=== PATIENT | female | born 1970 | race Caucasian/White ===

== ENCOUNTER 2018-05-29 18:26 | Emergency (ER) | payer SELFPAY ==
[2018-05-29] MEDS ORDERED: Labetalol 25mg/5ml Syringe IVP STA ×2 (19:33→21:23)
--- NOTE | 2018-05-29 19:34 | C.PDOC ---
History Of Present Illness 48 year old female with no significant PMHx presents to the ED c/o skin rash for the past month. Patient denies fever, chills, headache, visual changes, slurred speech, CP, SOB, palpitations, weakness, numbness. Chief Complaint (Nursing): Abnormal Skin Integrity History Per: Patient History/Exam Limitations: no limitations Onset/Duration Of Symptoms: Days Current Symptoms Are (Timing): Still Present Quality Of Symptoms: Itching Recent travel outside of the [place]: No Additional History Per: Patient Past Medical History Reviewed: Historical Data, Nursing Documentation, Vital Signs Vital Signs: Last Vital Signs Temp 97.9 F 05/29/18 18:52 Pulse 112 H 05/29/18 18:52 Resp 20 05/29/18 18:52 BP 230/146 H 05/29/18 18:52 Pulse Ox 97 05/29/18 18:52 - Medical History PMH: No Chronic Diseases Surgical History: No Surg Hx Family History: States: Unknown Family Hx - Social History Hx Alcohol Use: No Hx Substance Use: No Review Of Systems Constitutional: Negative for: Fever, Chills Cardiovascular: Negative for: Chest Pain, Palpitations Respiratory: Negative for: Shortness of Breath Gastrointestinal: Negative for: Nausea, Vomiting, Abdominal Pain Musculoskeletal: Negative for: Neck Pain Skin: Positive for: Rash Neurological: Negative for: Weakness, Numbness, Headache, Dizziness Physical Exam - Physical Exam Appears: Non-toxic, No Acute Distress, Other (Obese) Skin: Warm, Dry, Rash (psoriatic patches, generalized on extremities and trunk area) Head: Atraumatic, Normacephalic Eye(s): bilateral: Normal Inspection, PERRL, EOMI Oral Mucosa: Moist Neck: Normal ROM, Supple Chest: Symmetrical Cardiovascular: Rhythm Regular (tachycardic) Respiratory: No Rales, No Rhonchi, No Wheezing Gastrointestinal/Abdominal: Soft, No Tenderness, No Guarding, No Rebound Extremity: Normal ROM, No Tenderness, No Swelling Neurological/Psych: Oriented x3, Normal Speech, Normal Cognition Gait: Steady ED Course And Treatment - Laboratory Results Result Diagrams: 05/29/18 19:39 05/29/18 19:39 ECG: Interpreted By Me, Viewed By Me ECG Rhythm: Sinus Tachycardia, Nonspecific Changes ECG Interpretation: No Acute Changes, Abnormal Interpretation Of ECG: Sinus tachycardia, LVH, abnormal tracings. Rate From EC O2 Sat by Pulse Oximetry: 97 (On RA) Pulse Ox Interpretation: Normal Medical Decision Making Medical Decision Making: Plan: * EKG * Labs * Trandate 20 mg IVP * UA While in the ED patient's blood pressure was elevated, patient denies CP, SOB, palpitations, headache, visual changes, weakness. Disposition Counseled Patient/Family Regarding: Studies Performed, Diagnosis - Disposition Referrals: [facility] [Outside] Disposition: HOME/ ROUTINE Disposition Time: 23:30 Condition: STABLE Prescriptions: Enalapril Maleate [Vasotec] 5 mg PO DAILY #14 tab Fluocinonide 0.05% Cream [Lidex 0.05% Cream] 15 gm EXT BID #2 tube hydroCHLOROthiazide [Hydrodiuril] 25 mg PO DAILY #14 tab Potassium Chloride 10 meq PO DAILY #14 tab.er.prt Instructions: High Blood Pressure (DC), Hypokalemia (DC), Low Salt Diet, High Blood Pressure Emergencies, Psoriasis (DC) Forms: [employer] (Citizen Of [place]), Gen Discharge Inst Tun[place]ian Print Language: KHMER - POA Present On Arrival: None - Clinical Impression Clinical Impression: Psoriasis, Hypertension, Hypokalemia - Scribe Statement The provider has reviewed the documentation as recorded by the Scribe Bill Devine All medical record entries made by the Scribe were at my direction and perso sandeep dictated by me. I have reviewed the chart and agree that the record accurately reflects my personal performance of the history, physical exam, medical decision making, and the department course for this patient. I have also personally directed, reviewed, and agree with the discharge instructions and disposition.
[2018-05-29] MEDS ORDERED: Labetalol 5mg/ml (4ml) ONE ×2 (19:40→21:31)
[2018-05-29 19:44] LABS: BASO # 0.1 K/uL (0.0-0.2); BASO % 0.7 % (0.0-2.0); EOS # 0.1 K/uL (0.0-0.7); EOS % 1.1 % (0.0-4.0); LYMPH # 3.6 K/uL (1.0-4.3); LYMPH % 28.6 % (20.0-40.0); MEAN CELL VOLUME 83.2 fL (81.0-99.0); MEAN CORPUSCULAR HEMOGLOBIN 28.3 pg (27.0-31.0); MEAN PLATELET VOLUME 8.5 fL (7.2-11.7); MONO # 0.8 K/uL (0.0-0.8); MONO % 6.5 % (0.0-10.0); NEUT % 63.1 % (50.0-75.0); NRBC % 0.1 % (0.0-2.0); RBC 5.64 Mil/uL (3.80-5.20); RED CELL DISTRIBUTION WIDTH 12.6 % (11.5-14.5); WHITE BLOOD COUNT 12.6 K/uL (4.8-10.8)
[2018-05-29 19:57] LABS: ALB/GLOB RATIO 1.6 (1.0-2.1); ALBUMIN 4.8 g/dL (3.5-5.0); ALT/SGPT 45 U/L (9-52); AST/SGOT 38 U/L (14-36); BLOOD UREA NITROGEN 21 mg/dL (7-17); GFR NON-AFRICAN AMERICAN 53
[2018-05-29] MEDS ORDERED: Potassium Chloride 20 mEq/15 ml LIQ UD PO STA (21:21)
[2018-05-29 21:23] LABS: URINE BACTERIA OCC (<OCC); URINE BILIRUBIN NEGATIVE (NEGATIVE); URINE BLOOD NEGATIVE (NEGATIVE); URINE CLARITY Clear (Clear); URINE COLOR Straw (YELLOW); URINE GLUCOSE (UA) NORMAL (Normal); URINE LEUKOCYTE ESTERASE NEG Leu/uL (Negative); URINE PROTEIN NEGATIVE (NEGATIVE); URINE UROBILINOGEN NORMAL mg/dL (0.2-1.0)
[2018-05-29] MEDS ORDERED: Potassium Chloride 20 mEq/15 ml LIQ UD ONE (21:31)
[2018-05-29] MEDS ORDERED: Enalaprilat 2.5 MG/2 ML IV ONE ×2 (21:31→23:02)
[2018-05-29] MEDS ORDERED: Enalaprilat 2.5 MG/2 ML ONE ×2 (21:52→23:12)
[2018-05-29 23:24] VITALS: BP 164/95; PULSE 78; RESP 19; TEMP 98.2
[2018-05-30 01:26] VITALS: O2SAT 97
--- NOTE | 2018-05-30 09:38 | RAD ---
Date of service: 05/29/2018 HISTORY: Hypertension COMPARISON: No prior. TECHNIQUE: Chest PA and lateral FINDINGS: LINES AND TUBES: None. LUNG AND PLEURA: The lungs are well inflated and clear. No pleural effusion or pneumothorax. HEART AND MEDIASTINUM: The heart is not enlarged. There is unfolding of the aorta. No aortic atherosclerotic calcifications present. The hilar and mediastinal contours are within normal limits. SKELETAL STRUCTURES: The bony structures are within normal limits for the patient's age. VISUALIZED UPPER ABDOMEN: Normal. OTHER FINDINGS: None. IMPRESSION: No active pulmonary disease.
--- NOTE | 2018-05-30 12:54 | CARD ---
APPROVED REPORT Date of service: 05/29/2018 EKG Measurement Heart [id number] <Conclusion> Sinus tachycardia Moderate voltage criteria for LVH, may be normal variant Nonspecific T wave abnormality Abnormal ECG
== END 2018-05-29 23:41 | disposition home or self-care (01) ==
LOC: C.ER 18:26
DX: L40.9 Psoriasis, unspecified (principal); I10 Essential (primary) hypertension; E87.6 Hypokalemia